=== PATIENT | male | born 1985 | race Caucasian/White ===

== ENCOUNTER 2016-11-09 13:50 | Emergency (ER) | payer OTHER ==
[2016-11-09] MEDS ORDERED: Zofran 4 MG/2 ML VIAL IV ONE (14:12)
[2016-11-09] MEDS ORDERED: Pepcid 20 MG VIAL IV ONE ×2 (14:12→14:20)
[2016-11-09] MEDS ORDERED: Sodium Chloride 0.9% 1000 ML 1,000 ML IV STA (14:12)
[2016-11-09] MEDS ORDERED: DILAUDID 1 MG/ML INJECTION IV ONE ×2 (14:13→15:58)
[2016-11-09] MEDS ORDERED: Zofran 4 MG/2 ML VIAL ONE (14:20)
[2016-11-09] MEDS ORDERED: Sodium Chloride 0.9% 1000 ML 1,000 ML ONE (14:21)
[2016-11-09] MEDS ORDERED: DILAUDID 1 MG/ML INJECTION ONE ×2 (14:21→16:02)
--- NOTE | 2016-11-09 14:42 | XRAY ---
Indication: Abdomen pain with nausea and vomiting. Comparison: None 2 views of the abdomen nonacute and nonobstructed with previous cholecystectomy. Solid organs and osseous structures unremarkable. Single PA chest demonstrate normal heart, lungs, and bony thorax. Impression: Nonacute nonobstructed abdomen. Normal 1 view chest.
[2016-11-09 14:43] LABS: Mean Cell Volume 86.4 fl (78-100); Mean Corpuscular Hemoglobin 29.2 pg (26-32); Mean Platelet Volume 10.9 fl (6-9.5); Platelet Count 291 K/mm3 (150-450); Red Blood Count 5.95 M/mm3 (4.1-5.6); Red Cell Distribution Width 13.5 % (11.5-14.0); White Blood Count 13.2 K/mm3 (4.0-10.5)
--- NOTE | 2016-11-09 14:53 | ERPHSYRPT ---
- History of Present Illness Time Seen by Provider: 11/09/16 13:55 Historian: patient, family Exam Limitations: no limitations Patient Subjective Stated Complaint: ABD PAIN CENTER OF ABD FOR A WEEK NOW, VOMITED X3 TODAY,STATES PAIN IS LIKE KNOT. BM TODAY Triage Nursing Assessment: PT ARRIVED MOANING AND RUBBING ABD, POOR HISTORIAN, AND SOFT AND LARGE, RESP EASY,SKIN W/D Physician History: CC abd pain with N&V intermittantly for 1 week; no bloody emesis; no melena; no fever; no travel; no exposures; similar episode prior to having GFB removed; Timing/Duration: today (worse), week(s) (1 onset) Activities at Onset: rest Quality: cramping Abdominal Pain Onset Location: epigastric Pain Radiation: no radiation Severity of Pain-Max: severe Severity of Pain-Current: severe Modifying Factors: Improves With: eating, vomiting Associated Symptoms: heartburn, loss of appetite, nausea, vomiting Previous symptoms: same symptoms as today (before GB removed some time ago) Allergies/Adverse Reactions: No Known Drug Allergies Allergy (Unverified 11/09/16 14:02) Hx Influenza Vaccination/Date Given: No - Review of Systems Constitutional: No Symptoms Eyes: No Symptoms Ears, Nose, & Throat: No Symptoms Respiratory: No Cough, No Dyspnea, No Wheezing Cardiac: No Chest Pain, No Palpitations, No Syncope Abdominal/Gastrointestinal: Abdominal Pain, Nausea, Vomiting, Constipation ( interm ittantly), No Diarrhea, No Hematemesis, No Hematochezia, No Melena Genitourinary Symptoms: No Symptoms Musculoskeletal: No Symptoms Skin: No Symptoms Neurological: No Symptoms Psychological: No Symptoms Endocrine: No Symptoms Hematologic/Lymphatic: No Symptoms Immunological/Allergic: No Symptoms - Past Medical History Pertinent Past Medical History: No - Past Surgical History Past Surgical History: Yes Gastrointestinal: Cholecystectomy, Other Other Surgical History: ULCERS - Social History Smoking Status: Current every day smoker Exposure to second hand smoke: Yes Alcohol Use: Socially Drug Use: none, marijuana Patient Lives Alone: No Significant Family History: no pertinent family hx - Nursing Vital Signs Nursing Vital Signs: Initial Vital Signs Temperature 98.3 F Temperature Source Oral Pulse Rate 63 Respiratory Rate 16 Blood Pressure [] 126/50 Pain Intensity 5 - Physical Exam General Appearance: moderate distress (abd pain with Nausea), alert, obese Eye Exam: PERRL/EOMI, photophobia Ears, Nose, Throat Exam: normal ENT inspection, TMs normal, pharynx normal, moist mucous membranes Neck Exam: normal inspection, non-tender, supple, full range of motion, No meningismus, No JVD Respiratory Exam: normal breath sounds, lungs clear, airway intact, No chest tenderness, No respiratory distress Cardiovascular Exam: regular rate/rhythm, normal heart sounds, normal peripheral pulses, capillary refill <2 sec, No murmur Gastrointestinal/Abdomen Exam: soft, tenderness (epigastric only), No normal bowel sounds (present but hypoactive), No distention, No mass, No guarding, No pulsatile mass, No rebound, No organomegaly Rectal Exam: deferred Back Exam: normal inspection, normal range of motion, No CVA tenderness, No vertebral tenderness Extremity Exam: normal inspection, normal range of motion, No zhou's sign, No pedal edema Neurologic Exam: alert, oriented x 3, cooperative, 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 as tested, normal mood/affect, nml cerebellar function, nml station & gait Skin Exam: normal color, warm, dry, No rash SpO2 Interpretation: normal SpO2: 98 Oxygen Delivery: Room Air - Course Nursing assessment & vital signs reviewed: Yes - Radiology Exams Abdomen X-ray Interpretation: Reviewed by me, Teleradiologist Report, Negative - CT Exams Abdomen/Pelvis CT Interpretation: Negative, Normal Appendix, Other (mild addenitis/ ileus local ) Ordered Tests: Active Orders 24 hr Category Date Time Status IV Insertion STAT Care 11/09/16 14:12 Active NPO (ED) STAT Care 11/09/16 14:12 Active Re-Check Vital Signs STAT Care 11/09/16 14:12 Completed ABDOMEN AND PELVIS W/0 CONTRAS [CT] Stat Exams 11/09/16 14:59 Completed OBSTR/ACUTE ABDOMEN SERIES Stat Exams 11/09/16 14:12 Completed AMYLASE Stat Lab 11/09/16 14:20 Completed CBC W DIFF Stat Lab 11/09/16 14:20 Completed CMP Stat Lab 11/09/16 14:20 Completed LIPASE Stat Lab 11/09/16 14:20 Completed Manual Differential NC Stat Lab 11/09/16 14:20 Completed Medication Summary Discontinued Medications Generic Name Dose Route Start Last Admin Trade Name Freq PRN Reason Stop Dose Admin Famotidine 20 mg 11/09/16 14:12 11/09/16 14:34 Pepcid 20 Mg Vial IV 11/09/16 14:13 20 mg STAT ONE Administration Famotidine Confirm 11/09/16 14:20 Pepcid 20 Mg Vial Administered 11/09/16 14:21 Dose 20 mg IV .STK-MED ONE Hydromorphone HCl 1 mg 11/09/16 14:13 11/09/16 14:34 Dilaudid 1 Mg/Ml Injection IV 11/09/16 14:14 1 mg STAT ONE Administration Hydromorphone HCl Confirm 11/09/16 14:21 Dilaudid 1 Mg/Ml Injection Administered 11/09/16 14:22 Dose 1 mg .ROUTE .STK-MED ONE Hydromorphone HCl 1 mg 11/09/16 15:58 11/09/16 16:03 Dilaudid 1 Mg/Ml Injection IV 11/09/16 15:59 1 mg STAT ONE Administration Hydromorphone HCl Confirm 11/09/16 16:02 Dilaudid 1 Mg/Ml Injection Administered 11/09/16 16:03 Dose 1 mg .ROUTE .STK-MED ONE Sodium Chloride 1,000 mls @ 999 mls/hr 11/09/16 14:12 11/09/16 14:34 Sodium Chloride 0.9% 1000 Ml IV 11/09/16 15:12 999 mls/hr .Q1H1M STA Administration Sodium Chloride Confirm 11/09/16 14:21 Sodium Chloride 0.9% 1000 Ml Administered 11/09/16 14:22 Dose 1,000 mls @ ud .ROUTE .STK-MED ONE Ondansetron HCl 4 mg 11/09/16 14:12 11/09/16 14:34 Zofran 4 Mg/2 Ml Vial IV 11/09/16 14:13 4 mg STAT ONE Administration Ondansetron HCl Confirm 11/09/16 14:20 Zofran 4 Mg/2 Ml Vial Administered 11/09/16 14:21 Dose 4 mg .ROUTE .STK-MED ONE Promethazine HCl 12.5 mg 11/09/16 15:59 11/09/16 16:03 Phenergan 25 Mg Inj IV 11/09/16 16:00 12.5 mg STAT ONE Administration Promethazine HCl Confirm 11/09/16 16:02 Phenergan 25 Mg Inj Administered 11/09/16 16:03 Dose 25 mg .ROUTE .STK-MED ONE Lab/Rad Data: Laboratory Result Diagrams 11/09/16 14:20 11/09/16 14:20 Laboratory Results 11/09/16 11/09/16 Range/Units 14:20 14:20 WBC 13.2 H (4.0-10.5) K/mm3 RBC 5.95 H (4.1-5.6) M/mm3 Hgb 17.4 (12.5-18.0) gm/dl Hct 51.4 H (42-50) % MCV 86.4 (78-100) fl MCH 29.2 (26-32) pg MCHC 33.9 (32-36) g/dl RDW 13.5 (11.5-14.0) % Plt Count 291 (150-450) K/mm3 MPV 10.9 H (6-9.5) fl Segmented Neutrophils 76 H (36.-66.) % Lymphocytes (Manual) 17 L (24-44) % Monocytes (Manual) 6 (0.0-12.0) % Eosinophils (Manual) 1 (0.00-3.0) % Differential Comment NORMAL Toxic Granulation 1+ Platelet Estimate NORMAL (NORMAL) Sodium 140 (136-145) mEq/L Potassium 3.3 L (3.5-5.1) mEq/L Chloride 98 (98-107) mEq/L Carbon Dioxide 26.4 (21-32) mEq/L Anion Gap 18.4 H (5-15) MEQ/L BUN 12 (9-20) mg/dL Creatinine 1.17 (0.55-1.30) mg/dl Estimated GFR > 60 ML/MIN Glucose 91 (70-110) MG/DL Calcium 9.5 (8.5-10.1) mg/dL Total Bilirubin 0.7 (0.2-1.0) mg/dL AST 18 (15-37) U/L ALT 34 (12-78) U/L Alkaline Phosphatase 78 (46-116) U/L Serum Total Protein 8.1 (6.4-8.2) gm/dL Albumin 4.4 (3.4-5.0) g/dL Amylase 26 (25-115) U/L Lipase 126 (73-393) U/L reviewed - Progress Progress: improved (after IV fluids and ), re-examined (after xr and meds) Progress Note: 11/09/16 14:56 recheck after xr and some relief; xr neg; cbc elevated wbc 13.2;will recheck; family at bedside 11/09/16 15:11 recheck and 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; no RLQ tenderness; n&V resolving; renal fx and lytes good except for low K+ 3.3, [place] and lip ok; CT pending to ro APPY ; will recheck 11/09/16 16:00 results of tests an CT shared; N&V imporved and pain improved but returning; will medicate and recheck 11/09/16 16:23 rechecked and patient resting comfortably; pain resolved; no N&V ; has received a liter of IV fluids; results and instructions shared with patient and family Counseled pt/family regarding: lab results, diagnosis, need for follow-up, rad results - Departure Time of Disposition: 16:24 Departure Disposition: Home Clinical Impression: Abdominal pain of unknown etiology, Vomiting Condition: Stable Critical Care Time: No Referrals: DOCTOR,NO FAMILY [Primary Care Provider] - Instructions: Vomiting -- Adult, Abdominal Pain-Adult Additional Instructions: clear fluids 12-24 hours; rest Follow-up with family doctor as directed. Call for appointment. Return if any problems. If you smoke please stop. Call or follow up with your family doctor for assistance if you need it to stop. Please wear your seatbelt when driving. Have a nice day. Thank you for allowing us to participate in your care today. :o) Dr Sachin Angel Prescriptions: Metoclopramide HCl 10 mg [Reglan 10 MG] 10 mg PO ACHS #20 tablet Promethazine HCl 25 mg Supp [Phenergan 25 mg Supp] 25 mg RC Q6-8HPRN PRN # 10 supp.rect PRN Reason: Vomiting
[2016-11-09 14:58] LABS: ALBUMIN 4.4 g/dL (3.4-5.0); ALKALINE PHOSPHATASE 78 U/L (46-116); ANION GAP 18.4 MEQ/L (5-15); BILIRUBIN,TOTAL 0.7 mg/dL (0.2-1.0); BLOOD UREA NITROGEN 12 mg/dL (9-20); CHLORIDE 98 mEq/L (98-107); Carbon Dioxide 26.4 mEq/L (21-32); Glucose 91 MG/DL (70-110); LIPASE 126 U/L (73-393); Potassium 3.3 mEq/L (3.5-5.1); SGOT/AST 18 U/L (15-37); SGPT/ALT 34 U/L (12-78); SODIUM 140 mEq/L (136-145); Total Protein 8.1 gm/dL (6.4-8.2)
--- NOTE | 2016-11-09 15:39 | XRAY ---
Indication: Abdominal pain for one week. Nausea and vomiting. Elevated WBC. Multiple contiguous axial images obtained through the abdomen and pelvis without contrast as ordered. Comparison: None Lung bases are clear. Heart is not enlarged. Noncontrasted stomach and bowel loops appear nonobstructed. In the left midabdomen there is a small bowel loop that is mildly fluid distended with fluid leveling, possible enteritis versus focal ileus. Normal appendix. No free fluid/air. Previous cholecystectomy. Remaining liver, pancreas, spleen, adrenal glands, kidneys, ureters, bladder, and aorta appear unremarkable for noncontrast exam. Incidental IVC duplication. Osseous structures intact. Impression: Left midabdomen fluid distended small bowel loop with fluid leveling, possible enteritis versus focal ileus. Remaining CT abdomen/pelvis without contrast exam is negative. CT DI 22.47
[2016-11-09] MEDS ORDERED: Phenergan 25 MG INJ IV ONE (15:59)
[2016-11-09] MEDS ORDERED: Phenergan 25 MG INJ ONE (16:02)
[2016-11-09 16:08] LABS: Eosinophil 1 % (0.00-3.0); Platelet Estimate NORMAL (NORMAL); Total Cells Counted 100; Toxic Granulation 1+
[2016-11-09 16:11] VITALS: BP 126/50; PULSE 63
[2016-11-09 16:28] VITALS: O2SAT 98
== END 2016-11-09 16:46 | disposition home or self-care (01) ==
LOC: ED 13:50
DX: R10.13 Epigastric pain (principal); R11.2 Nausea with vomiting, unspecified; K59.00 Constipation, unspecified
CPT/HCPCS: 36000; 36415; 74022; 74176; 80053; 82150; 83690; 85025; 96360; 96374; 96375; 96376; 99284; J1170; J2405; J2550

== ENCOUNTER 2016-11-10 12:50 | Emergency (ER) | payer OTHER ==
[2016-11-10] MEDS ORDERED: Sodium Chloride 0.9% 1000 ML 1,000 ML IV STA ×2 (13:03→14:40)
[2016-11-10] MEDS ORDERED: Phenergan 25 MG INJ IM ONE (13:03)
[2016-11-10] MEDS ORDERED: Pepcid 20 MG VIAL IV ONE ×2 (13:03→13:17)
[2016-11-10] MEDS ORDERED: DILAUDID 1 MG/ML INJECTION IV ONE ×2 (13:03→14:40)
[2016-11-10] MEDS ORDERED: Phenergan 25 MG INJ ONE (13:17)
[2016-11-10] MEDS ORDERED: Sodium Chloride 0.9% 1000 ML 1,000 ML ONE ×2 (13:17→14:48)
[2016-11-10] MEDS ORDERED: DILAUDID 1 MG/ML INJECTION ONE ×2 (13:17→14:48)
[2016-11-10 13:21] LABS: BASOPHIL % 0.4 % (0.0-0.4); Eosinophil % 1.2 % (0.00-5.0); Granulocytes % 70.5 % (36.0-66.0); Lymphocytes % 18.1 % (24.0-44.0); Mean Cell Volume 85.8 fl (78-100); Mean Platelet Volume 10.7 fl (6-9.5); Monocytes % 9.8 % (0.0-12.0); Platelet Count 280 K/mm3 (150-450); Red Blood Count 6.07 M/mm3 (4.1-5.6); Red Cell Distribution Width 13.4 % (11.5-14.0); White Blood Count 14.4 K/mm3 (4.0-10.5)
[2016-11-10 13:22] LABS: Mean Corpuscular Hemoglobin 29.1 pg (26-32)
[2016-11-10 14:02] LABS: ALBUMIN 4.2 g/dL (3.4-5.0); ALKALINE PHOSPHATASE 74 U/L (46-116); ANION GAP 16.7 MEQ/L (5-15); BILIRUBIN,TOTAL 0.6 mg/dL (0.2-1.0); BLOOD UREA NITROGEN 11 mg/dL (9-20); CHLORIDE 100 mEq/L (98-107); Carbon Dioxide 26.4 mEq/L (21-32); Glucose 87 MG/DL (70-110); LIPASE 146 U/L (73-393); Potassium 3.5 mEq/L (3.5-5.1); SGOT/AST 18 U/L (15-37); SGPT/ALT 29 U/L (12-78); SODIUM 140 mEq/L (136-145); Total Protein 7.5 gm/dL (6.4-8.2)
--- NOTE | 2016-11-10 14:06 | ERPHSYRPT ---
- History of Present Illness Time Seen by Provider: 11/10/16 13:00 Historian: patient Patient Subjective Stated Complaint: vomiting today with abd pain Triage Nursing Assessment: ambualted to room holding abd, moaning. skin w/d, color normal. abd soft, tender upper quads. hypoactive bowel sounds. Physician History: CC: abd pain hx: 31 y/o male patient with abd pain and vomiting and some diarrhea. He was seen in ER yesterday and CT showed possible enteritis. No fever or chills. Pain worse today despite meds. No prior abd surgeries. No local doctor. Severity of Pain-Max: moderate Allergies/Adverse Reactions: No Known Drug Allergies Allergy (Unverified 11/09/16 14:02) Hx Tetanus, Diphtheria Vaccination/Date Given: No Hx Influenza Vaccination/Date Given: No Hx Pneumococcal Vaccination/Date Given: No - Review of Systems Constitutional: Malaise, Weakness, No Fever, No Chills Eyes: No Symptoms Ears, Nose, & Throat: No Symptoms Respiratory: No Cough, No Dyspnea Cardiac: No Chest Pain Abdominal/Gastrointestinal: Abdominal Pain, Nausea, Vomiting, Diarrhea Genitourinary Symptoms: No Dysuria Musculoskeletal: No Back Pain Skin: No Rash Neurological: No Headache All Other Systems: Reviewed and Negative - Past Medical History Pertinent Past Medical History: No - Past Surgical History Past Surgical History: Yes Gastrointestinal: Cholecystectomy, Other Other Surgical History: ULCERS - Social History Smoking Status: Current every day smoker How long have you smoked: 20 Exposure to second hand smoke: Yes Alcohol Use: Socially Drug Use: marijuana Patient Lives Alone: No Significant Family History: no pertinent family hx - Nursing Vital Signs Nursing Vital Signs: Initial Vital Signs Temperature 98 F Temperature Source Oral Pulse Rate 74 Respiratory Rate 16 Blood Pressure [Right Arm] 138/61 Pain Intensity 3 - Physical Exam General Appearance: alert Eye Exam: PERRL/EOMI Ears, Nose, Throat Exam: normal ENT inspection, moist mucous membranes Neck Exam: normal inspection, non-tender, supple Respiratory Exam: normal breath sounds, lungs clear Cardiovascular Exam: regular rate/rhythm, No murmur Gastrointestinal/Abdomen Exam: soft, tenderness (mild diffuse discomfort, no guarding, no point tenderness, no herniea, normal male genitalia) Extremity Exam: normal inspection, normal range of motion Neurologic Exam: alert, oriented x 3, cooperative, sensation nml, No motor deficits Skin Exam: warm, dry, No rash SpO2 Interpretation: normal SpO2: 100 Oxygen Delivery: Room Air - Course Nursing assessment & vital signs reviewed: Yes Ordered Tests: Active Orders 24 hr Category Date Time Status Clean Catch Urine Specimen STAT Care 11/10/16 13:03 Active IV Insertion STAT Care 11/10/16 13:03 Active NPO (ED) STAT Care 11/10/16 13:03 Active ABDOMEN AND PELVIS W CONTRAST [CT] Stat Exams 11/10/16 14:40 Taken OBSTR/ACUTE ABDOMEN SERIES Stat Exams 11/10/16 13:04 Completed CBC W DIFF Stat Lab 11/10/16 13:15 Completed CMP Stat Lab 11/10/16 13:15 Completed LIPASE Stat Lab 11/10/16 13:15 Completed Lactic Acid Urgent Lab 11/10/16 13:15 Completed UA W/ MICROSCOPIC Stat Lab 11/10/16 14:05 Completed Urine Triage Profile Stat Lab 11/10/16 14:05 Completed Medication Summary Discontinued Medications Generic Name Dose Route Start Last Admin Trade Name Freq PRN Reason Stop Dose Admin Famotidine 20 mg 11/10/16 13:03 11/10/16 13:36 Pepcid 20 Mg Vial IV 11/10/16 13:04 20 mg STAT ONE Administration Famotidine Confirm 11/10/16 13:17 Pepcid 20 Mg Vial Administered 11/10/16 13:18 Dose 20 mg IV .STK-MED ONE Hydromorphone HCl 1 mg 11/10/16 13:03 11/10/16 13:36 Dilaudid 1 Mg/Ml Injection IV 11/10/16 13:04 1 mg STAT ONE Administration Hydromorphone HCl Confirm 11/10/16 13:17 Dilaudid 1 Mg/Ml Injection Administered 11/10/16 13:18 Dose 1 mg .ROUTE .STK-MED ONE Hydromorphone HCl 1 mg 11/10/16 14:40 11/10/16 14:51 Dilaudid 1 Mg/Ml Injection IV 11/10/16 14:41 1 mg STAT ONE Administration Hydromorphone HCl Confirm 11/10/16 14:48 Dilaudid 1 Mg/Ml Injection Administered 11/10/16 14:49 Dose 1 mg .ROUTE .STK-MED ONE Sodium Chloride 1,000 mls @ 999 mls/hr 11/10/16 13:03 11/10/16 13:37 Sodium Chloride 0.9% 1000 Ml IV 11/10/16 14:03 999 mls/hr .Q1H1M STA Administration Sodium Chloride Confirm 11/10/16 13:17 Sodium Chloride 0.9% 1000 Ml Administered 11/10/16 13:18 Dose 1,000 mls @ ud .ROUTE .STK-MED ONE Sodium Chloride 1,000 mls @ 999 mls/hr 11/10/16 14:40 11/10/16 14:49 Sodium Chloride 0.9% 1000 Ml IV 11/10/16 15:40 999 mls/hr .Q1H1M STA Administration Sodium Chloride Confirm 11/10/16 14:48 Sodium Chloride 0.9% 1000 Ml Administered 11/10/16 14:49 Dose 1,000 mls @ ud .ROUTE .STK-MED ONE Ondansetron HCl 4 mg 11/10/16 14:55 11/10/16 15:01 Zofran 4 Mg/2 Ml Vial IV 11/10/16 14:56 4 mg STAT ONE Administration Ondansetron HCl Confirm 11/10/16 14:57 Zofran 4 Mg/2 Ml Vial Administered 11/10/16 14:58 Dose 4 mg .ROUTE .STK-MED ONE Pantoprazole Sodium 40 mg 11/10/16 14:40 11/10/16 14:50 Protonix 40 Mg Iv IV 11/10/16 14:41 40 mg STAT ONE Administration Pantoprazole Sodium Confirm 11/10/16 14:48 Protonix 40 Mg Iv Administered 11/10/16 14:49 Dose 40 mg IV .STK-MED ONE Promethazine HCl 25 mg 11/10/16 13:03 11/10/16 13:37 Phenergan 25 Mg Inj IM 11/10/16 13:04 25 mg STAT ONE Administration Promethazine HCl Confirm 11/10/16 13:17 Phenergan 25 Mg Inj Administered 11/10/16 13:18 Dose 25 mg .ROUTE .STK-MED ONE Lab/Rad Data: Laboratory Result Diagrams 11/10/16 13:15 11/10/16 13:15 Laboratory Results 11/10/16 11/10/16 11/10/16 Range/Units 14:05 14:05 13:15 WBC (4.0-10.5) K/mm3 RBC (4.1-5.6) M/mm3 Hgb (12.5-18.0) gm/dl Hct (42-50) % MCV (78-100) fl MCH (26-32) pg MCHC (32-36) g/dl RDW (11.5-14.0) % Plt Count (150-450) K/mm3 MPV (6-9.5) fl Gran % (36.0-66.0) % Lymphocytes % (24.0-44.0) % Monocytes % (0.0-12.0) % Eosinophils % (0.00-5.0) % Basophils % (0.0-0.4) % Basophils # (0-0.4) Sodium (136-145) mEq/L Potassium (3.5-5.1) mEq/L Chloride (98-107) mEq/L Carbon Dioxide (21-32) mEq/L Anion Gap (5-15) MEQ/L BUN (9-20) mg/dL Creatinine (0.55-1.30) mg/dl Estimated GFR ML/MIN Glucose (70-110) MG/DL Lactic Acid 1.6 (0.4-2.0) Calcium (8.5-10.1) mg/dL Total Bilirubin (0.2-1.0) mg/dL AST (15-37) U/L ALT (12-78) U/L Alkaline Phosphatase (46-116) U/L Serum Total Protein (6.4-8.2) gm/dL Albumin (3.4-5.0) g/dL Lipase (73-393) U/L Ur Collection Type CCMS Urine Color DARK YELLOW (YELLOW) Urine Appearance CLEAR (CLEAR) Urine pH 7.0 (5-6) Ur Specific [place] >=1.030 (1.005-1.025) Urine Protein 30 (Negative) Urine Glucose (UA) NEGATIVE (NEGATIVE) mg/dL Urine Ketones >=160 (NEGATIVE) Urine Nitrite NEGATIVE (NEGATIVE) Urine Bilirubin MODERATE (NEGATIVE) Urine Urobilinogen 1 (0-1) mg/dL Urine WBC (Auto) NEGATIVE (NEGATIVE) Urine RBC (Auto) NEGATIVE (0-5) Carlos/ul Urine Microscopic RBC 0-2 (0-2) /HPF Urine Microscopic WBC 0-2 (0-5) /HPF Urine Bacteria FEW (NEGATIVE) /HPF Urine Mucus MODERATE (NEGATIVE) /HPF Urine Opiates Level NEG. (NEGATIVE) Ur Methadone NEG. (NEGATIVE) Urine Barbiturates NEG. (NEGATIVE) Ur Phencyclidine (PCP) NEG. (NEGATIVE) Urine Amphetamine NEG. (NEGATIVE) U Benzodiazepine Level NEG. (NEGATIVE) Urine Cocaine NEG. (NEGATIVE) Urine Marijuana (THC) POS. (NEGATIVE) Specimen Received 11-10-16 1412 11/10/16 11/10/16 Range/Units 13:15 13:15 WBC 14.4 H (4.0-10.5) K/mm3 RBC 6.07 H (4.1-5.6) M/mm3 Hgb 17.7 (12.5-18.0) gm/dl Hct 52.1 H (42-50) % MCV 85.8 (78-100) fl MCH 29.1 (26-32) pg MCHC 34.0 (32-36) g/dl RDW 13.4 (11.5-14.0) % Plt Count 280 (150-450) K/mm3 MPV 10.7 H (6-9.5) fl Gran % 70.5 H (36.0-66.0) % Lymphocytes % 18.1 L (24.0-44.0) % Monocytes % 9.8 (0.0-12.0) % Eosinophils % 1.2 (0.00-5.0) % Basophils % 0.4 (0.0-0.4) % Basophils # 0.06 (0-0.4) Sodium 140 (136-145) mEq/L Potassium 3.5 (3.5-5.1) mEq/L Chloride 100 (98-107) mEq/L Carbon Dioxide 26.4 (21-32) mEq/L Anion Gap 16.7 H (5-15) MEQ/L BUN 11 (9-20) mg/dL Creatinine 1.24 (0.55-1.30) mg/dl Estimated GFR > 60 ML/MIN Glucose 87 (70-110) MG/DL Lactic Acid (0.4-2.0) Calcium 9.3 (8.5-10.1) mg/dL Total Bilirubin 0.6 (0.2-1.0) mg/dL AST 18 (15-37) U/L ALT 29 (12-78) U/L Alkaline Phosphatase 74 (46-116) U/L Serum Total Protein 7.5 (6.4-8.2) gm/dL Albumin 4.2 (3.4-5.0) g/dL Lipase 146 (73-393) U/L Ur Collection Type Urine Color (YELLOW) Urine Appearance (CLEAR) Urine pH (5-6) Ur Specific [place] (1.005-1.025) Urine Protein (Negative) Urine Glucose (UA) (NEGATIVE) mg/dL Urine Ketones (NEGATIVE) Urine Nitrite (NEGATIVE) Urine Bilirubin (NEGATIVE) Urine Urobilinogen (0-1) mg/dL Urine WBC (Auto) (NEGATIVE) Urine RBC (Auto) (0-5) Carlos/ul Urine Microscopic RBC (0-2) /HPF Urine Microscopic WBC (0-5) /HPF Urine Bacteria (NEGATIVE) /HPF Urine Mucus (NEGATIVE) /HPF Urine Opiates Level (NEGATIVE) Ur Methadone (NEGATIVE) Urine Barbiturates (NEGATIVE) Ur Phencyclidine (PCP) (NEGATIVE) Urine Amphetamine (NEGATIVE) U Benzodiazepine Level (NEGATIVE) Urine Cocaine (NEGATIVE) Urine Marijuana (THC) (NEGATIVE) Specimen Received - Progress Progress Note: 11/10/16 16:57 CT abdomen/pelvis: jolie 4:51 PM 11/10/2016: No change compared to yesterday CT. Again mild distended L abdomen small bowel loops w/ fluid leveling, ileus vs enteritis. No new/acute findings. 11/10/16 17:06 +THC. Pt smokes almost daily THC for many years. He report 4-5 hot baths a day when belly acts up. Discussed possible PUD, enteritis, or canabanis hyperemesis cyclical vomiting syndrome. Advised stop marijuana, follow up with family doctor and consider EGD. He prefers to go home. Counseled pt/family regarding: lab results, diagnosis, need for follow-up, rad results - Departure Time of Disposition: 17:07 Departure Disposition: Home Clinical Impression: Abdominal pain of unknown etiology, Cannabinoid hyperemesis syndrome Vomiting Qualifiers: Vomiting type: cyclical vomiting Vomiting Intractability: intractable Nausea presence: with nausea Qualified Code(s): G43.A1 - Cyclical vomiting, intractable Condition: Fair Critical Care Time: No Referrals: DOCTOR,NO FAMILY [Primary Care Provider] - Instructions: Abdominal Pain-Adult, Vomiting -- Adult Additional Instructions: Stop marijuana. No driving and stay with family today. Rx prilosec. Take phenergan as already prescribed for nausea. Follow up with family doctor next week. Return for fever, worsening, passing blood or concerns. Prescriptions: Omeprazole 20 MG [Prilosec 20 mg] 20 mg PO DAILY #30 capsule.
--- NOTE | 2016-11-10 14:07 | XRAY ---
Indication: Abdominal pain. Comparison: One day earlier 2 views of the abdomen unchanged again nonacute and nonobstructed with cholecystectomy clips. PA chest again demonstrates normal heart, lungs, and bony thorax. No new/acute chest or abdominal findings.
[2016-11-10 14:23] LABS: Bacteria FEW /HPF (NEGATIVE); COMPLETE URINE MICROSCOPIC? YES; Collection Type CCMS; Mucus MODERATE /HPF (NEGATIVE); WBC 0-2 /HPF (0-5)
[2016-11-10] MEDS ORDERED: PROTONIX 40 MG IV IV ONE ×2 (14:40→14:48)
[2016-11-10] MEDS ORDERED: Zofran 4 MG/2 ML VIAL IV ONE (14:55)
[2016-11-10] MEDS ORDERED: Zofran 4 MG/2 ML VIAL ONE (14:57)
[2016-11-10 16:27] VITALS: PULSE 74
[2016-11-10 16:58] VITALS: O2SAT 100
[2016-11-10 17:30] VITALS: BP 102/57
--- NOTE | 2016-11-10 18:57 | XRAY ---
Indication: Epigastric pain. Multiple contiguous axial images obtained through the abdomen and pelvis using 80 cc of Isovue-370 contrast and oral contrast. Comparison: One day earlier Lung bases remain clear. Heart is not enlarged. Contrasted stomach and bowel loops again appear nonobstructed with mild distended small bowel loops in the left abdomen with fluid leveling, possible enteritis versus ileus. Normal appendix. No free fluid/air. Previous cholecystectomy. Remaining liver, pancreas, spleen, adrenal glands, kidneys, ureters, bladder, and aorta appear normal in CT appearance and attenuation. Incidental IVC duplication. Osseous structures intact. Impression: Stable CT abdomen/pelvis with contrast exam again demonstrating mild distended small bowel loops with fluid leveling, enteritis versus ileus. No new intra-abdominal/pelvic abnormalities. CT DI 23.62
== END 2016-11-10 17:30 | disposition home or self-care (01) ==
LOC: ED 12:50
DX: G43.A1 Cyclical vomiting, in migraine, intractable (principal); R10.10 Upper abdominal pain, unspecified; F12.988 Cannabis use, unspecified with other cannabis-induced disorder
CPT/HCPCS: 36000; 36415; 74022; 74177; 80053; 80307; 81000; 83605; 83690; 85025; 96372; 96374; 96375; 99284; J1170; J2405; J2550